=== PATIENT | female | born 1985 | race Caucasian/White ===

== ENCOUNTER 2016-05-25 01:41 | Emergency (ER) | payer OTHER ==
[~2016-05-25] VITALS: Ht 162.6 cm; Wt 88.9 kg
[2016-05-25 01:45] VITALS: BP 116/74
[2016-05-25] MEDS ORDERED: VITAMIN D250000 UNI1 ORAL (01:50)
[2016-05-25] MEDS ORDERED: MULTIVITAMINS1 EAC2 ORAL (01:50)
[2016-05-25] MEDS ORDERED: HUMIRA40 MG/0.2 SUBQ (01:50)
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
[2016-05-25] MEDS ORDERED: Bacitracin Oint UD TOPIC ONE (02:15)
[2016-05-25 02:20] VITALS: BP 116/74
== END 2016-05-25 02:20 | disposition home or self-care (01) ==
LOC: EMR 02:05 → EEVIPCON 02:05 → EMR 02:20
DX: S50.811A Abrasion of right forearm, initial encounter (principal); Y04.2XXA Assault by strike against or bumped into by another person, initial encounter; Y92.238 Other place in hospital as the place of occurrence of the external cause; Y99.0 Civilian activity done for income or pay
CPT/HCPCS: 99282